=== PATIENT | male | born 1945 | race Caucasian/White ===

== ENCOUNTER → 2017-03-22 | Outpatient (CLI) | payer OTHER ==
[~2017-03-22] MED LIST: ALPR1TAB2 PO; ASPI-515; ISOM1CAP PO; LATA2.5D3; LOSA1TAB2
== END | disposition home or self-care (01) ==
LOC: PETCFH 12:57
PROVIDERS: ATTEND Otolaryngology
DX: C76.0 Malignant neoplasm of head, face and neck (principal); R59.9 Enlarged lymph nodes, unspecified
CPT/HCPCS: 78815; A9552

== ENCOUNTER → 2017-04-01 | Outpatient (CLI) | payer OTHER | END | disposition home or self-care (01) | LOC: RAD 14:38 | PROVIDERS: ATTEND Otolaryngology | DX: C76.0 Malignant neoplasm of head, face and neck (principal) | CPT/HCPCS: 71046; 93005 ==

== ENCOUNTER → 2017-08-06 | Outpatient (CLI) | payer OTHER | END | disposition home or self-care (01) | LOC: CVU 07:01 | PROVIDERS: ATTEND Internal Medicine Cardiovascular Disease | DX: I65.23 Occlusion and stenosis of bilateral carotid arteries (principal); I10 Essential (primary) hypertension; I48.0 Paroxysmal atrial fibrillation; Z92.21 Personal history of antineoplastic chemotherapy | CPT/HCPCS: 93880 ==

== ENCOUNTER 2017-11-21 11:13 | Emergency (ER) | payer OTHER ==
[~2017-11-21] VITALS: Ht 185.4 cm; Wt 84.8 kg
[2017-11-21 12:04] LABS: BASOPHILS # (AUTO) 0.01 x10^3/uL (0-0.1); BASOPHILS % (AUTO) 0 % (0-1); EOSINOPHILS # (AUTO) 0.05 x10^3/uL (0-0.4); EOSINOPHILS % (AUTO) 1 % (1-7); LYMPHOCYTES # (AUTO) 0.46 x10^3/uL (1-3.4); LYMPHOCYTES % (AUTO) 9 % (22-44); MD NO; MEAN CORPUSCULAR HEMOGLOBIN 30.1 pg (27.5-34.5); MEAN CORPUSCULAR HGB CONC 33.8 g/dL (33.2-36.2); MEAN CORPUSCULAR VOLUME 89.1 fL (81-97); MEAN PLATELET VOLUME 9.5 fL (7.4-10.4); MONOCYTES # (AUTO) 0.39 x10^3/uL (0.2-0.8); MONOCYTES % (AUTO) 7 % (2-9); NEUTROPHILS # (AUTO) 4.47 x10^3/uL (1.8-6.8); NEUTROPHILS % (AUTO) 83 % (42-75); PLATELET COUNT 299 x10^3/uL (130-400); RED BLOOD COUNT 6.17 x10^6/uL (4.38-5.82); RED CELL DISTRIBUTION WIDTH 14.6 % (9.4-14.8)
[2017-11-21 12:13] LABS: INTERNATIONAL NORMALIZED RATIO 1.01 (0.93-1.1); PROTHROMBIN TIME 10.5 Seconds (9.6-11.5)
[2017-11-21 12:18] LABS: ALBUMIN 4.1 g/dL (3.4-5.0); ANION GAP 6 mmol/L (5-15); CALCIUM 9.3 mg/dL (8.5-10.1); CHLORIDE 108 mmol/L (98-107)
[2017-11-21 12:23] LABS: ALANINE AMINOTRANSFERASE 30 U/L (12-78); ALKALINE PHOSPHATASE 98 U/L (45-117); BILIRUBIN,TOTAL 1.2 mg/dL (0.2-1.0); CREATININE 0.96 mg/dL (0.7-1.3); TOTAL PROTEIN 7.5 g/dL (6.4-8.2); TROPONIN I < 0.015 ng/mL (0.000-0.045)
[2017-11-21] MEDS ORDERED: APIXABAN 5 MG TABLET PO ONE (12:30)
[2017-11-21] MEDS ORDERED: DILTIAZEM 5 MG/ML, 5ML IV ONE (12:30)
[2017-11-21] MEDS ORDERED: APIXABAN 5 MG TABLET ONE (12:32)
[2017-11-21] MEDS ORDERED: ETOMIDATE 20 MG/10 ML ONE (13:11)
[2017-11-21] MEDS ORDERED: ETOMIDATE 20 MG/10 ML IVPush ONE (13:30)
[2017-11-21 14:41] VITALS: BP 136/76
== END 2017-11-21 14:44 | disposition home or self-care (01) ==
LOC: ED 14:02
DX: I48.0 Paroxysmal atrial fibrillation (principal); I10 Essential (primary) hypertension; K21.9 Gastro-esophageal reflux disease without esophagitis; Z90.89 Acquired absence of other organs
CPT/HCPCS: 36415; 71045; 80053; 84484; 85025; 85610; 92960; 93005; 96374; 99152

== ENCOUNTER 2018-05-31 11:12 | Emergency (ER) | payer OTHER ==
[~2018-05-31] VITALS: Ht 185.4 cm; Wt 84.0 kg
[2018-05-31 11:14] VITALS: BP 154/89
--- NOTE | 2018-05-31 11:47 | NUR ---
TASK RN: PT AMBULATORY TO ROOM FROM TRIAGE. ASSESSMENT NOTED. PT SR ON MONITOR. DR. SCHULTE AT BEDSIDE, POC DISCUSSED, ORDERS REC'D.
== END 2018-05-31 12:58 | disposition home or self-care (01) ==
LOC: ED 12:37
DX: I48.0 Paroxysmal atrial fibrillation (principal); I10 Essential (primary) hypertension; K21.9 Gastro-esophageal reflux disease without esophagitis; Z90.49 Acquired absence of other specified parts of digestive tract
CPT/HCPCS: 93005; 99283

== ENCOUNTER 2018-07-26 13:38 | Emergency (ER) | payer OTHER ==
[~2018-07-26] VITALS: Ht 185.4 cm; Wt 81.7 kg
[2018-07-26 14:21] LABS: BASOPHILS # (AUTO) 0.02 x10^3/uL (0-0.1); BASOPHILS % (AUTO) 1 % (0-1); EOSINOPHILS # (AUTO) 0.03 x10^3/uL (0-0.4); EOSINOPHILS % (AUTO) 1 % (1-7); LYMPHOCYTES # (AUTO) 0.36 x10^3/uL (1-3.4); LYMPHOCYTES % (AUTO) 10 % (22-44); MD NO; MEAN CORPUSCULAR HEMOGLOBIN 33.2 pg (27.5-34.5); MEAN CORPUSCULAR HGB CONC 33.8 g/dL (33.2-36.2); MEAN CORPUSCULAR VOLUME 98.2 fL (81-97); MEAN PLATELET VOLUME 10.3 fL (7.4-10.4); MONOCYTES # (AUTO) 0.45 x10^3/uL (0.2-0.8); MONOCYTES % (AUTO) 13 % (2-9); NEUTROPHILS # (AUTO) 2.65 x10^3/uL (1.8-6.8); NEUTROPHILS % (AUTO) 76 % (42-75); PLATELET COUNT 222 x10^3/uL (130-400); RED BLOOD COUNT 3.98 x10^6/uL (4.38-5.82); RED CELL DISTRIBUTION WIDTH 15.6 % (9.4-14.8)
--- NOTE | 2018-07-26 14:24 | NUR ---
Recieved report from ALMITA Denise. All questions answered. Assuming care of pt. Pt resting on gurney connected to NIBP, continous pulse ox, and cardiac cath lab radiology technologist. Pt's spouse at bedside. Bedrail up for safety measures, and call light within reach.
[2018-07-26 14:42] LABS: ALBUMIN 3.8 g/dL (3.4-5.0); ANION GAP 6 mmol/L (5-15); CALCIUM 8.9 mg/dL (8.5-10.1); CHLORIDE 110 mmol/L (98-107)
[2018-07-26] MEDS ORDERED: PROPOFOL 10 MG/ML, 20ML ONE (14:44)
[2018-07-26 14:46] LABS: TROPONIN I < 0.015 ng/mL (0.000-0.045)
[2018-07-26] MEDS ORDERED: PROPOFOL 10 MG/ML, 20ML IVP ONE (15:00)
--- NOTE | 2018-07-26 15:43 | NUR ---
LATE NOTE ENTERY FOR 1512: Consent obtained. Procedural and surgical safety checklist filled out and reviewed. Pt connected to defibrilator pads, teletypesetter monitor, NIBP cuff, pulse ox, and oxygen at 10L NC. Pt is AOX4, skin is intact, cms intact, skin pink, warm, and dry. Pt maintaining own airway and secreations and can speak in full sentences. NADN. Pt is in atrial fibrilation as seen on teletypesetter monitor. Suction set up at bedside, code cart in room and set up, and oxygen bag available for use. Pt has two PIV's in place prior to procedure with PIV fluids infusing per ED MD verbal order.
--- NOTE | 2018-07-26 15:46 | NUR ---
Late note for 1513: Pt recieved 70 mg of Propofol by EDMD. Pt sedated and not responsive to voice.
--- NOTE | 2018-07-26 15:47 | NUR ---
LATE NOTE FOR 151: Pt awake, AOX4, responsive to voice, and follows commands. NADN. Pt in normal sinus rhythm per EKG and nurse monitoring. NADN. Pt recieved 400 mL of NS during procedure through PIV. Both bedrails up for safety measures, call light within reach. Pt maintains airway and secreations and can speak in full sentences. Pt denies any pain at this time.
--- NOTE | 2018-07-26 15:47 | NUR ---
LATE NOTE FOR 1514: Defibrilator charged to 120 Joules. Pt defibrilated one time and went from atrial fibrilation to normal sinus rhythm. Pt maintained airway throughout procedure.
[2018-07-26] MEDS ORDERED: APIXABAN 5 MG TABLET PO ONE (16:30)
[2018-07-26] MEDS ORDERED: APIXABAN 5 MG TABLET ONE (16:30)
[2018-07-26 16:50] VITALS: BP 132/74
--- NOTE | 2018-07-26 16:52 | NUR ---
Patient and friend given discharge instructions and they have confirmed that they understand the instructions. Patient ambulatory with steady gait. Pt left with d/c paperwork, prescription, and all personal belongings. NADN. No obvious defecits observed.
== END 2018-07-26 16:53 | disposition home or self-care (01) ==
LOC: ED 16:47
DX: I48.0 Paroxysmal atrial fibrillation (principal); I10 Essential (primary) hypertension; K21.9 Gastro-esophageal reflux disease without esophagitis; Z85.9 Personal history of malignant neoplasm, unspecified; Z90.49 Acquired absence of other specified parts of digestive tract
CPT/HCPCS: 36415; 71045; 80048; 82040; 84484; 85025; 92960; 93005

== ENCOUNTER 2018-10-10 00:44 | Inpatient (IN) | payer OTHER, MEDICARE ==
[~2018-10-10] VITALS: Ht 185.4 cm; Wt 73.8 kg
[2018-10-11 12:12] VITALS: BP 100/82
== END 2018-10-11 16:00 | disposition home or self-care (01) | DRG 309 ==
LOC: ED 01:31 → EDIP 02:10 → 5SO 03:21 → UNDODISIN 10-11 15:20 → DCLOUNGE 10-11 15:51
PROVIDERS: ADMIT Family Medicine; ATTEND Family Medicine
PROC: 5A2204Z Restoration of Cardiac Rhythm, Single (ICD-10-PCS; principal; 2018-10-10)
DX: I48.0 Paroxysmal atrial fibrillation (principal); E46 Unspecified protein-calorie malnutrition; F41.9 Anxiety disorder, unspecified; I10 Essential (primary) hypertension; Z79.01 Long term (current) use of anticoagulants; Z88.8 Allergy status to other drugs, medicaments and biological substances; Z68.21 Body mass index [BMI] 21.0-21.9, adult
CPT/HCPCS: 36415; 71045; 80048; 80061; 82040; 83735; 83880; 84100; 84443; 84484; 85025; 92960; 93005; 93306; 99152; G0378; J1650

== ENCOUNTER 2018-12-22 13:25 | Outpatient (CLI) | payer OTHER ==
[~2018-12-22 13:25] MED LIST changes: +ASPI-496 PO; +DILT240C55 PO; +DILT60TA30 PO; +ESOM20CA PO; +LATA7.5D OP; +RIVA20TA PO; +TIMO1DRO2 OP; +TIMO5DRO37 EACHEYE
== END 2018-12-22 23:59 | disposition home or self-care (01) ==
LOC: CVU 13:25 → RAD 23:59
PROVIDERS: ATTEND Internal Medicine Cardiovascular Disease
DX: G31.9 Degenerative disease of nervous system, unspecified (principal); I65.22 Occlusion and stenosis of left carotid artery
CPT/HCPCS: 70450; 93880